=== PATIENT | female | born 1965 | race Caucasian/White ===

== ENCOUNTER → 2020-10-20 | Outpatient (CLI) | payer OTHER | LOC: LAB 11:19 | PROVIDERS: ATTEND Surgery | DX: Z01.812 Encounter for preprocedural laboratory examination (principal); Z20.828 Contact with and (suspected) exposure to other viral communicable diseases ==

== ENCOUNTER → 2021-12-20 | Outpatient (CLI) | payer OTHER | LOC: CAT 08:06 | PROVIDERS: ATTEND Family Medicine | DX: Z13.6 Encounter for screening for cardiovascular disorders (principal); E78.00 Pure hypercholesterolemia, unspecified; I25.10 Atherosclerotic heart disease of native coronary artery without angina pectoris ==